=== PATIENT | female | born 1965 | race Caucasian/White ===

== ENCOUNTER → 2017-02-24 | Day surgery (SDC) | payer BC ==
[~2017-02-24] MED LIST: BUPIVACAINE/EPINEPHRINE 0.5% 50 ML VIAL ONE; LACTATED RINGER'S 1000 ML INJ 1,000 ML ONE; MIDAZOLAM HCL 2 MG/2 ML VIAL ONE; MORPHINE SULFATE 4 MG/ML INJ ONE; ONDANSETRON HCL 4 MG/2 ML VIAL IV PUSH ONE; PROPOFOL 500 MG/50 ML BTL IV ONE; SODIUM CHLORIDE 0.9% INJ 10 ML ONE; ceFAZolin 2 GM PREMIX 50 ML ONE
--- NOTE | 2017-02-24 10:53 | TN ---
cc: BILLY RAMIRES M.D. DATE OF SURGERY: 02/24/2017 PREOPERATIVE DIAGNOSIS Large left breast cancer. POSTOPERATIVE DIAGNOSIS Large left breast cancer. PROCEDURE PERFORMED Right subclavian Hgfnyv-U-[id number] with intraoperative fluoroscopy. SURGEON Billy Ramires ANESTHESIA TIVA with local. COMPLICATIONS None. 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 She requires neoadjuvant chemotherapy. Risks and benefits of Rcstvw-U-Sres placement was discussed with her and she was agreeable to proceed. DETAILS OF PROCEDURE The patient was identified, brought to the operating room and placed supine on the operating table. After adequate IV sedation was achieved the anterior chest and neck was prepped and draped in standard surgical fashion. 0.25% Marcaine was injected into the skin and subcutaneous tissue around the right clavicle. An 18-gauge needle was then used to access the right subclavian vein without difficulty. A guidewire was inserted and advanced to the level of superior vena cava under direct fluoroscopic vision. Next, a subcutaneous pocket was fashioned in the right anterior chest using blunt dissection. An introducer was then placed over the guidewire and followed to the level of the superior vena cava. The guidewire was then removed and catheter inserted. The catheter was advanced to about to 18 cm which placed it at the junction of the right atrium and superior vena cava. The introducer was then removed. The catheter was attached to the port with a locking device. The port was tested, found to have excellent blood return, easy ability to flush. The port was secured in the subcutaneous pocket using a 2-0 Prolene suture. The pocket was injected with additional local anesthetic and then closed in two layers using 4-0 Vicryl. Sterile dressings were applied. The patient was awakened and brought to Recovery in stable condition. MD JYOTI Moura/TOREY /10:39 AM /10:46 AM
== END | disposition home or self-care (01) ==
LOC: ESDC 08:47
PROVIDERS: ATTEND Surgery Trauma Surgery
DX: Z45.2 Encounter for adjustment and management of vascular access device (principal); C50.912 Malignant neoplasm of unspecified site of left female breast
CPT/HCPCS: 00532; 36561; 77001; C1788; J0690; J1642; J2250; J2270; J2405; J3010; J7120